=== PATIENT | male | born 1960 | race Caucasian/White ===

== ENCOUNTER 2023-10-22 11:09 | Outpatient (CLI) | payer BC, SELFPAY ==
--- NOTE | 2023-10-22 11:16 | ECG_ITS ---
SEE SCANNED COPY FOR CONFIRMED REPORT MTDD
== END 2023-10-22 11:10 | disposition home or self-care (01) ==
LOC: ANHLAB 11:10
PROVIDERS: PCP Family Medicine; Visit Provider Family Medicine
DX: R53.83 Other fatigue (principal)
CPT/HCPCS: 93005

== ENCOUNTER 2023-11-05 08:53 | Outpatient (CLI) | payer BC, SELFPAY ==
--- NOTE | 2023-11-07 12:56 | WPDHOMESLEEP ---
Sleep Study - Home Unattended Date of Study: 11/05/23 Ordering Provider: Chris Wong MD Interpreting Provider: Crystal Spangler MD Home Sleep Study Type: Watch PAT Height: 2.03 m Weight: 81.193 kg Body Mass Index: 19.6 Neck Circumference (inches): 15.5 [place]: 1 Reason for Sleep Study Loud snoring, witnessed apnea Sleep History Ponce Diana is a 63-year-old man with loud snoring and witnessed apnes per his . He has low energy levels in the evenings. He wakes up earlier than expected in the morning. He never awakens from sleep feeling short of breath. He occasionally has night with heartburn, belching or coughing. He always snores and is always really loud enough that others complain. He occasionally has difficulty sleeping with a cold. He does not wake up gasping for breath at night. He occasionally has breathing problems at night observed by his . He rarely sweats excessively at night. He never notices his heart pounding or beating irregularly at night, he denies falling asleep during the day, does not fall asleep involuntarily and never falls asleep while driving. He does not have loss of muscle tone with strong emotion. He does not have daytime difficulties due to excessive sleepiness. He does not feel paralyzed on waking or falling asleep. He does not have vivid dreamlike scenes upon awakening or falling asleep. He is not afraid to go to sleep. He does not have nightmares. On occasion he remembers his dreams. He does not have racing thoughts, feelings of sadness, depression or anxiety. He rarely notices parts jerking. He occasionally kicks at night. He does not have crawling or aching feelings in his legs or any kind of leg pain at night. He does not have morning jaw pain. He occasionally grinds his teeth at night. He rarely is bothered by pain during the day. He never is awakened by pain at night frequently wakes up feeling stiff in the morning. He occasionally wakes up with sore achy muscles and pain in the neck and spine. He has fatigue. He takes antacids regularly. He and his now sleep in separate rooms. Normal bedtime is 10:30 p.m. falling asleep within seconds, waking a couple of times during the night just for brief episode. While awake, he rolls to his other side and repositions. His normal wake time is between 6 and 7:00 a.m.. On weekends, bedtime is midnight, wake time is between 7 and 8:00 a.m.. He estimates getting between 6 and 7 hours of sleep at night. He does not take naps in the afternoon or evening. Habits: Tobacco: never smoker Caffeine: 2 cups of coffee, 1 serving of tea Alcohol: Rare Recreational substance: none [facility] Past Medical History Medical History Abnormal fasting glucose (03/25/22) glucose 102 on 03/25/2022. BMI 27.0-27.9,adult BMI 28.0-28.9,adult BPH without obstruction/lower urinary tract symptoms Chronic low back pain with right-sided sciatica Chronic thoracic back pain COVID-19 (12/21/21) vaccinated and tested positive 12/21/2021. Eczema lower extremity Encounter for wellness examination in adult Erectile dysfunction due to and not concurrent with radiation therapy Essential (primary) hypertension Fatigue Gastro-esophageal reflux disease without esophagitis Hypersomnia Mixed hyperlipidemia Total cholesterol 202, triglycerides 176, HDL 43, LDL 130 on 03/25/2022. Overweight (BMI 25.0-29.9) Polyp of colon (~2017) 2 benign polyps 2018, 1 polyp reported July,. Prostate cancer treated with radiation treatment April, Pruritus lower extremities from eczema Seasonal allergic rhinitis Family History Family History Father Family history of cardiovascular disease Mother Family history of malignant neoplasm of breast in first degree relative Social History Social History (Reviewed 11/07/23 @ 13:0
[2023-11-10 13:04] VITALS: BMI 19.6
== END 2023-11-06 07:30 | disposition home or self-care (01) ==
LOC: ANHCSM 08:55
PROVIDERS: PCP Family Medicine; Visit Provider Family Medicine
DX: G47.10 Hypersomnia, unspecified (principal); I49.9 Cardiac arrhythmia, unspecified
CPT/HCPCS: 95800

== ENCOUNTER 2023-12-31 10:29 | Outpatient (CLI) | payer BC, SELFPAY ==
--- NOTE | 2024-01-01 16:03 | WPDHOLTEREM ---
Holter/Event Monitor Holter/Event Monitor Date of procedure: 01/02/24 Holter/Event Procedure: 24 Hr Holter Monitor Indications: Cardiac arrhythmia Conclusion: 1. 24 hour holter monitor on 12/31/23. 2. Predominant rhythm is sinus rhythm. HR range 42-107 bpm; average HR 71 bpm. 3. There are 4,534 premature supraventricular complexes, 12 supraventricular couplets, 60 supraventricular bigeminy and 164 supraventricular trigeminy. There is 1 episode of atrial tachycardia at 146 bpm lasting 4 beats at 22:45. 4. There are 2 premature ventricular complexes. No ventricular tachycardia. 5. No sinoatrial or atrioventricular blocks. No significant pauses greater than 2 seconds. 6. Patient reports symptoms of palpitations which demonstrate sinus rhythm at 70 bpm.
== END 2023-12-31 10:30 | disposition home or self-care (01) ==
LOC: ANHCARD 10:30
PROVIDERS: PCP Family Medicine; Visit Provider Family Medicine
DX: I49.9 Cardiac arrhythmia, unspecified (principal)
CPT/HCPCS: 93225; 93226

== ENCOUNTER 2024-07-22 13:46 | Outpatient (CLI) | payer BC, SELFPAY ==
--- NOTE | ~2024-07-22 | CT_ITS ---
EXAMINATION: CT abdomen pelvis wo con DATE: 07/22/2024 14:06 INDICATION: Kidney stone. TECHNIQUE: Computed tomography (CT) of the abdomen and pelvis was performed without intravenous contr ast. Automated exposure control and iterative reconstruction technique were employed. The dose-length product was 216.09 mGy-cm. COMPARISON: None. FINDINGS: The visualized portions of the lung bases are clear without pneumonia or pleural effusion. The heart size is normal. No pericardial effusion. There is 11 mm cyst in the liver. The gallbladder is contracted. The pancreas and adrenal glands are normal. There is a 2 mm stone in right kidney. Lef t kidney is normal. There is a 5 mm stone in distal left ureter. There are brachytherapy seeds in the prostate. The appendix is normal. There are no dilated loops of bowel. There are no pathologically e nlarged lymph nodes. There is no free intraperitoneal fluid. There is a 19 mm nonaggressive lytic les ion in right ilium adjacent to the sacroiliac joint, likely benign. There is mild thoracic and lumbar spondylosis. IMPRESSION: 1. 5 mm stone in distal left ureter. No hydronephrosis. 2. 2 mm nonobstructing right kidney stone. Reviewed, dictated and finalized at location A. ECT MANAGEMENT PROFESSIONAL
--- OUTSIDE RECORDS SUMMARY | 2024-07-22 13:53 | XMS_ITS | Continuity of Care Document ---
Author Organization [facility] Address [address] [place] [address] [address] [place] [address] Phone Care Team Providers Care Class A Regional Drivers Name Role Phone Rey Carlson Unavailable Unavailable Procedures Procedure Date Eye Exam & Treatment Refraction Eye Exam & Treatment Advance Directives Directive Yes / No Effective Date File Name No Information Encounters Encounter Description Practice Location Reason(s) For Visit Diagnoses Date Provider Providers Copied on Encounter [facility], [address] [place] [address] [address], [place], [place], [id number], tel:[phone] SEC [facility] No Information 2-201 0 Robyn Le. [address] [facility] , [address], [place], [place], [facility], . tel:[phone] [facility], [address] [place] [address] [address], [place], [place], [id number], tel:[phone] SEC [facility] No Information 8-200 8 Krkianasamy Eamon. [address] [facility] [address], [place], [place], [facility], [place]. tel:[phone] Family History Family Member Type Diagnosis Age At Onset No Information Payers Payer name Insurance type Covered libertarian ID Authoriza tion(s) No Information Social History Type Description Quantity Date Captured Comments Sex Male Smoking Status No Information Chief Complaint And Reason For Visit No Information Reason For Referral Reason For Referral No Information History Of Present Illness Encounter Date Complaint History Of Prese nt Illness No Information Functional Status Date Functional Assessmen t No Information Instructions Date Instruction Additional Infor mation No Information Assessments Type Assessment Date No Information Patient Care Teams Name Effective Dates (start - stop) Status Members No Information
--- OUTSIDE RECORDS SUMMARY | 2024-07-22 13:53 | XMS_ITS | Referral Summary ---
Author Organization [facility] HealthCare Care Team Providers Care Mc Kay Stitcher Name Role Phone Chris Wong MD Primary Care Provider [phone] Social History Tobacco Use Types Packs/Day Years Used Date Smoking Tobacco: Never Assessed Personal Safety Answer Date Recorded Getting School Help Needed Not on file 08/16 Sex and Gender Information Value Date Recorded Sex Assigned at Not on file Legal Sex Male 10:00 AM CDT Gender Identity Not on file Sexual Orientation Not on file Plan of Treatment Not on file Insurance [employer] [place] [employer] [place] Care Teams Mc Kay Stitcher Relationship Specialty Start Date End Date Chris Wong MD [email or web address] [address] PCP - General Family Medicine 02/09/21
--- OUTSIDE RECORDS SUMMARY | 2024-07-22 13:53 | XMS_ITS | Clinical Summary ---
Author Organization [facility] HealthCare Care Team Providers Care Site Inspector Name Role Phone Chris Wong MD Primary Care Provider [phone] Social History Tobacco Use Types Packs/Day Years Used Date Smoking Tobacco: Never Assessed Personal Safety Answer Date Recorded Getting School Help Needed Not on file 08/16 Sex and Gender Information Value Date Recorded Sex Assigned at Not on file Legal Sex Male 10:00 AM CDT Gender Identity Not on file Sexual Orientation Not on file Plan of Treatment Not on file Insurance [employer] [place] [employer] [place] Care Teams Site Inspector Relationship Specialty Start Date End Date Chris Wong MD [email or web address] [address] PCP - General Family Medicine 02/09/21
--- OUTSIDE RECORDS SUMMARY | 2024-07-22 13:53 | XMS_ITS | Patient Health Record ---
Author Organization [employer] Address [address] [facility] [address] [place] [address] Care Team Providers Care Commercial Underwriter Name Role Phone Chris Wong MD Primary Care Provider Garfield Walton Unavailable [phone] Reason For Referral No Information Problems Problem Type SNOMED Code ICD Code Onset Dates Problem Status W/U Status Risk Notes Problem [id number] Personal history of colonic polyps (Z86.010) Active confirmed Plan Of Treatment No Information Insurance Providers Payer Name Payer Address Payer Phone Subscriber Number Group Number Insured Name Patient Relationship to Insured Coverage Start Date Coverage End Date Blue Access PPO E2 [address] [place] [address] [id number] Ponce Diana Self - patient is the insured
--- OUTSIDE RECORDS SUMMARY | 2024-07-22 13:53 | XMS_ITS | Encounter Summary ---
Author Organization [facility] Healthcare Address [address] [place] [address] Care Team Providers Care Director Private Music Therapy Agency Name Role Phone Chris Wong MD Primary Care Provider [phone] Encounter Details Date Type Department Care Team (Late st Contact Info) Description 02/08/2021 Telephone [facility] - Imaging [address] [place] [address] Transcribed Order, Provider Social History Tobacco Use Types Packs/Day Years Used Date Smoking Tobacco: Never Assessed Sex and Gender Information Value Date Recorded Sex Assigned at Not on file Legal Sex Male 10:00 AM CDT Gender Identity Not on file Sexual Orientation Not on file documented as of this encounter Plan of Treatment Not on file documented as of this encounter Visit Diagnoses Not on filedocumented in this encounter Care Teams Director Private Music Therapy Agency Relationship Specialty Start Date End Date Chris Wong MD [address] [address] PCP - General Family Medicine 02/09/21 documented as of this encounter
--- OUTSIDE RECORDS SUMMARY | 2024-07-22 13:53 | XMS_ITS | Clinical Summary ---
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 Gender Identity Not on file Sexual Orientation Not on file Plan of Treatment Health Maintenance Due Date Last Done Comments Colorectal Cancer Screening Colonoscopy (10 Years) 1962 Annual Physical 1965 Hepatitis C 1980 Zoster Vaccines (1 of 2) 2012 COVID-19 Vaccine (2 - 2023-2 5 season) 2024 09/09/2020 Influenza Adult (#1) 2024 DTaP, Tdap and Td Vaccines ( 2 - Td or Tdap) 06/15/2026 06/15/2016 RSV Immunization or 60+ Years (1 - 1-dose 75+ series) 2037 Meningococcal B Vaccine Aged Out No l onger eligible based on patient's age to complete this topic Meningococcal Vaccine Aged Out No marc bunny eligible based on patient's age to complete this topic Pneumococcal Vaccine: Pediat rics (0 to 5 Years) and At-Risk Patients (6 to 64 Years) Aged Out No longer eligi ble based on patient's age to complete this topic RSV Immunizations Under 20 Months Aged Out No longer eligible based on patient's age to complete this topic Insurance [facility] Care Teams Pediatric Medical Assistant Relationship Specialty Start Date End Date Chris Wong MD [address] [place] [address] [address] [place] [address] PCP - General FAMILY PRACTICE 06/20/21
== END 2024-07-22 13:47 | disposition home or self-care (01) ==
LOC: ANHIMG 13:50
PROVIDERS: PCP Family Medicine; Visit Provider Urology
DX: N20.2 Calculus of kidney with calculus of ureter (principal)
CPT/HCPCS: 74176

== ENCOUNTER 2024-07-29 02:39 | Day surgery (SDC) | payer BC, SELFPAY ==
[2024-07-28 11:50] VITALS: BMI 26.2
--- NOTE | 2024-07-28 11:51 | PC.NURSE ---
Report to the Outpatient Waiting Room, entrance under the green pavilion located off [facility], at time _1000_ on date _[id number]_. Planned Procedure Time: _1200_.? Time changes happen often and if your time is changed the preop area will call you the afternoon before. - You and your visitor will be asked to self-screen and do not enter if you have any COVID symptoms. Please call surgeon if you need to reschedule. - A mask is optional within the hospital at this time. Patients may have clear liquids (water, carbonated beverages, clear teas, apple juice) until 3 hours prior to surgery with a maximum of 20 ounces. - No food from midnight until time of surgery and no smoking, or chewing tobacco (or any form of nicotine). No chewing gum, candy or mints. Take only the following medications with a SIP of water on the morning of surgery: ___Flonase____ DO NOT STOP ANY OF YOUR OTHER PRESCRIPTION MEDICATIONS PRIOR TO SURGERY EXCEPT THE FOLLOWING Hold all vitamins and supplements for 3 days per anesthesiologist. Medications to discontinue per physician Date to take last dose Please no make-up, nail swazi, hairspray, perfume, deodorant, or body powder the day of surgery.? No jewelry (including any body piercings) or valuables the day of surgery, leave them at home.? Please take a shower or bath the night before, or the morning of, surgery with an antibacterial soap.? Wear comfortable, loose fitting clothing.? - Jewelry must be removed prior to entering the operating room.? Rings and piercings that are not removed may be cut off. - The hospital will not accept responsibility for valuables.? - Please leave all valuables, including medications, at home the day of surgery. If you are going home after surgery, a licensed tilt tray driver must drive you home.? - NO public transportation without another adult if you receive anesthesia. - We recommend that an adult stay with you for 24 hours following discharge. - We also recommend that you do not drive, make important decision, drink alcoholic beverages, or take any drugs that were not prescribed by your health care provider for at least 24 hours after your discharge time. Follow any additional instructions given to you from your surgeon. Telephone instructions given to __Rich__and asked if any additional questions and then verbalized understanding. Patient advised to call surgeon office or pre surgery nurse liaison [phone] if any additional questions.
[2024-07-29] VITALS (9 sets, daily range): BP systolic 104–154; BP diastolic 70–98; PULSE 52–107; RESP 10–18; TEMP 36.4–36.7; O2SAT 98–100
--- OUTSIDE RECORDS SUMMARY | 2024-07-29 02:41 | XMS_ITS | Referral Summary ---
Author Organization [facility] HealthCare Care Team Providers Care Project Executive Name Role Phone Chris Wong MD Primary Care Provider [phone] Social History Tobacco Use Types Packs/Day Years Used Date Smoking Tobacco: Never Assessed Personal Safety Answer Date Recorded Getting School Help Needed Not on file 08/16 Sex and Gender Information Value Date Recorded Sex Assigned at Not on file Legal Sex Male 10:00 AM CDT Gender Identity Not on file Sexual Orientation Not on file Plan of Treatment Not on file Insurance [employer] [place] [employer] [place] Care Teams Project Executive Relationship Specialty Start Date End Date Chris Wong MD [address] [address] PCP - General Family Medicine 02/09/21
--- OUTSIDE RECORDS SUMMARY | 2024-07-29 02:41 | XMS_ITS | Patient Health Record ---
Author Organization [employer] Address [address] [facility] [address] [place] [address] Care Team Providers Care On Air Director Name Role Phone Chris Wong MD Primary Care Provider Garfield Walton Unavailable [phone] Reason For Referral No Information Problems Problem Type SNOMED Code ICD Code Onset Dates Problem Status W/U Status Risk Notes Problem [id number] Personal history of colonic polyps (Z86.010) Active confirmed Plan Of Treatment No Information Insurance Providers Payer Name Payer Address Payer Phone Subscriber Number Group Number Insured Name Patient Relationship to Insured Coverage Start Date Coverage End Date [employer] Access PPO E2 [address] [place] [address] [id number] Ponce Diana Self - patient is the insured
--- OUTSIDE RECORDS SUMMARY | 2024-07-29 02:41 | XMS_ITS | Clinical Summary ---
Author Organization [facility] Address [address] [place] [address] Care Team Providers Care Professional Volleyball Player Name Role Phone Chris Wong MD Primary Care Provider [phone] Social History Tobacco Use Types Packs/Day Years Used Date Smoking Tobacco: Never Assessed Sex and Gender Information Value Date Recorded Sex Assigned at Not on file Legal Sex Male 3:52 PM TECHNICAL DOCUMENT WRITER Gender Identity Not on file Sexual Orientation [...] patient's age to complete this topic Insurance [facility] Care Teams Professional Volleyball Player Relationship Specialty Start Date End Date Chris Wong MD [address] [place] [address] [address] [place] [address] PCP - General FAMILY PRACTICE 06/20/21
--- OUTSIDE RECORDS SUMMARY | 2024-07-29 02:41 | XMS_ITS | Continuity of Care Document ---
Author Organization [facility] Address [address] [place] [address] [address] [place] [address] Phone Care Team Providers Care Prep Room Supervisor Name Role Phone Rey Carlson Unavailable Unavailable Procedures Procedure Date Eye Exam & Treatment Refraction Eye Exam & Treatment Advance Directives Directive Yes / No Effective Date File Name No Information Encounters Encounter Description Practice Location Reason(s) For Visit Diagnoses Date Provider Providers Copied on Encounter [facility], [address] [place] [address] [address], [place], [place], [id number], tel:[phone] SEC [facility] No Information 2-201 0 Robyn Le. [address] [facility] , [address], [place], [place], [facility], . tel:[phone] [facility], [address] [place] [address] [address], [place], [place], [id number], tel:[phone] SEC [facility] No Information 8-200 8 Krkianasamy E[address]. [address] [facility] [address], [place], [place], [facility], [place]. tel:[phone] Family History Family Member Type Diagnosis Age At Onset No Information Payers Payer name Insurance type Covered green party ID Authoriza tion(s) No Information Social History [...]
--- OUTSIDE RECORDS SUMMARY | 2024-07-29 02:41 | XMS_ITS | Encounter Summary ---
Author Organization [facility] Healthcare Address [address] [place] [address] Care Team Providers Care Science Manager Name Role Phone Chris Wong MD Primary Care Provider [phone] Encounter Details Date Type Department Care Team (Late st Contact Info) Description 02/08/2021 Telephone [facility] - Imaging [address] [place] [address] Transcribed Order, Provider Social History [...] on filedocumented in this encounter Care Teams Science Manager Relationship Specialty Start Date End Date Chris Wong MD [address] [address] PCP - General Family Medicine 02/09/21 documented as of this encounter
--- OUTSIDE RECORDS SUMMARY | 2024-07-29 02:41 | XMS_ITS | Clinical Summary ---
Author Organization [facility] HealthCare Care Team Providers Care Colored Liquid Plastic Applier Name Role Phone Chris Wong MD Primary Care Provider [phone] Social History Tobacco Use Types Packs/Day Years Used Date Smoking Tobacco: Never Assessed Personal Safety Answer Date Recorded Getting School Help Needed Not on file 08/16 Sex and Gender Information Value Date Recorded Sex Assigned at Not on file Legal Sex Male 10:00 AM CDT Gender Identity Not on file Sexual Orientation Not on file Plan of Treatment Not on file Insurance [employer] [place] [employer] [place] Care Teams Colored Liquid Plastic Applier Relationship Specialty Start Date End Date Chris Wong MD [address] [address] PCP - General Family Medicine 02/09/21
--- NOTE | 2024-07-29 06:22 | WPDHPUPDATE1 ---
History and Physical Update Update Date/Time: 07/29/24 06:22 History and Physical has been reviewed, including an updated exam of the patient. There are NO changes in the patient's condition. Risks, benefits, and alternatives have been discussed and questions answered. Patient agrees to proceed with procedure.
[2024-07-29] MEDS: LACTATED RINGERS 1,000 ML 30 ML IV CONT (12:55)
--- NOTE | 2024-07-29 13:49 | WPDANESEPPF ---
Anes - Initial Pre Proc Eval Procedure: Operation Date: 07/29/24 14:00 Proposed Procedures p Cystoscopy Left Ureteroscopy, Left Stone Extraction, Possible Holmium Laser Lithotripsy, Left Retrograde Pyelogram, Left Stent Placement - Tirso Sylvester MD Date/Time: 07/29/24 13:49 Surgeon: Tirso Sylvester MD Pre Op Diagnosis: Left Ureteral Stone Patient Data Age: 63 Gender: M Height: 1.73 m Weight: 78.6 kg Last Vital Signs Temp 98.0 F 07/29/24 12:13 Pulse 107 H 07/29/24 12:13 Resp 16 07/29/24 12:13 BP 128/85 07/29/24 12:13 Pulse Ox 98 07/29/24 12:13 O2 Del Method Room Air 07/29/24 12:13 Allergies Allergy/AdvReac Type Severity Reaction Status Date / Time Penicillins Allergy Unknown Unknown Verified 07/29/24 13:09 Home Medications ?Medication ?Instructions ?Recorded ?Confirmed ?Type fluticasone propionate 50 1 spray intranasal BID 10/10/20 07/29/24 History mcg/actuation nasal spray,suspension cetirizine 10 mg tablet (Zyrtec) 10 mg PO . q.h.s. PRN allergy 10/22/23 07/28/24 History symptoms loratadine 10 mg tablet 10 mg PO . q.a.m. 10/22/23 07/29/24 History tadalafil 5 mg tablet (Cialis) 5 mg PO .COMPLEX sexual activity 10/22/23 07/28/24 Rx #30 tabs lisinopril 10 mg tablet 10 mg PO DAILY #90 tabs 06/10/24 07/29/24 Rx Patient hx anesthesia problems: none Family hx anesthesia problems: none Results Review: All pre-operative results and documents have been reviewed as part of the pre-operative evaluation. [facility] Past Medical History Medical History Eczema lower extremity BMI 28.0-28.9,adult Hypersomnia him sleep study 11/05/2023 with AHI of 2.0 with elevated RDI with arrhythmia throughout the night. Needs split night sleep study. Fatigue Erectile dysfunction due to and not concurrent with radiation therapy Overweight (BMI 25.0-29.9) Abnormal fasting glucose (03/25/22) glucose 102 on 03/25/2022. Fasting glucose 92 with hemoglobin A1c 5.5 on 10/22/2023. Pruritus lower extremities from eczema Prostate cancer treated with radiation treatment April, COVID-19 (12/21/21) vaccinated and tested positive 12/21/2021. Seasonal allergic rhinitis Chronic thoracic back pain Chronic low back pain with right-sided sciatica Polyp of colon (~2017) 2 benign polyps 2017, 1 polyp reported July,. Gastro-esophageal reflux disease without esophagitis Mixed hyperlipidemia Total cholesterol 202, triglycerides 176, HDL 43, LDL 130 on 03/25/2022. Cholesterol 202, triglycerides 167, HDL 43, LDL 131 with ratio of 4.7 on 10/22/2023. Essential (primary) hypertension BMI 27.0-27.9,adult BPH without obstruction/lower urinary tract symptoms Encounter for wellness examination in adult Family History Family History Father Family history of cardiovascular disease Mother Family history of malignant neoplasm of breast in first degree relative Social History Social History Smoking status: Never smoker Alcohol intake: current Substance use: never Substance use type: does not use Lack of Transportation: No Lack of Food: Never True Current Housing: I Have Housing Concerned About Future Housing: No Difficulty Paying Gas/Electric Bills: No Difficulty Paying for Meds: No Currently Unemployed: No Education: Master's Degree or Higher Difficulty w/ Childcare or Family Care: No Living arrangements: with family Spiritual care concerns: No Anes - Eval Final PreProcedure Day of Procedure 07/29/24 13:49 Patient weight: normal Lungs: normal air movement Airway: Mallampati scale class II Neurological: alert and oriented Last oral intake: >/= 8 hours ASA classification: II Emergent: no Anesthetic plan: proceed Anesthesia type and monitoring: general LMA and standard monitoring Results Review: All pre-operative results and documents have been reviewed as part of the pre-operative evaluation. HTN. Informed Consent: The patient's anesthetic plan and its attendant risks and benefits were discussed with the patient/family/POA. Questions were solicited and answers provided to the satisfaction of the patient/family/POA.
[2024-07-29] MEDS: ceFAZolin 2 GM/D5W 50 ML 2 GM/50 ML BAG IVPB (14:11)
[2024-07-29] MEDS: LIDOCAINE 2% GEL UROJET 10 ML PKG MUCOUS MEM (14:15)
[2024-07-29] MEDS: KETOROLAC 30 MG/ML VIAL (*BKC) IV PUSH (14:37)
--- NOTE | 2024-07-29 14:52 | W.PM.PROC2 ---
Procedure Note - Detailed Date of Procedure 07/29/24 Pre-op Diagnosis Left Ureteral Stone Post-op Diagnosis Same Procedure Performed Cystoscopy, left ureteroscopy, laser lithotripsy with ureteral stone extraction and retrograde pyelogram Surgeon Tirso Sylvester MD Anesthesia General Description of Procedure Patient is brought to the operative suite where he was prepped draped in routine sterile fashion while in dorsal lithotomy position after the uneventful induction of a general LMA anesthetic. Cystoscopy was undertaken with a 19 F rigid cystoscope. There was no urethral stricture and bladder mucosa is normal. There was no intravesical foreign body or neoplasm. A 0.035 in glidewire was advanced into his left renal pelvis under fluoroscopy in the distal ureter was dilated with an 8F/10F dilator. Ureteroscopy was undertaken with a short tapered semi-rigid ureteral scope. I tried extracting the left distal ureteral stone intact but was unable to. I fractured the laser using a 200 micron Toño laser fiber in the 4 smaller pieces, all of which were removed with ease with a 1.9 F disposable stone basket. Because of this ease of this manipulation and minimal apparent ureteral edema I opted not to place a ureteral stent. Retrograde pyelography showed no evidence of extravasation or significant obstruction. Scopes and wires removed and he was taken recovery room good condition. Drains No Packing No Pathology Yes Complications No immediate complications Condition Stable Disposition PACU
== END 2024-07-29 16:06 | disposition home or self-care (01) ==
PROVIDERS: PCP Family Medicine; Visit Provider Urology
PROC: (CPT 52352; principal; 2024-07-29 14:00)
DX: N20.1 Calculus of ureter (principal)
CPT/HCPCS: 52353; 74420; 82365; 88300; C1769; J0690; J1100; J1885; J2003; J2250; J2405; J2704; J3010; J7120; Q9966

== ENCOUNTER 2025-01-19 11:28 | Outpatient (CLI) | payer BC, SELFPAY ==
--- NOTE | ~2025-01-19 | XR_ITS ---
XR abdomen/kub 1V 01/19/2025 11:48 INDICATION: Kidney stones TECHNIQUE: KUB COMPARISON: None FINDINGS: Bowel gas pattern is normal. There is no evidence of free air, mass, organomegaly, ascites or obstruction. No abnormal calculi are seen. The bones appear intact. IMPRESSION: 1: No acute abdominal abnormality identified. Reviewed, dictated and finalized at location A.
--- OUTSIDE RECORDS SUMMARY | 2025-01-19 12:04 | XMS_ITS | Patient Health Record ---
Author Organization [employer] Address [address] [facility] [address] [place] [address] Care Team Providers Care Electrician Locomotive Name Role Phone Judith HALE, Chris Primary Care Provider Garfield Walton Unavailable [phone] Reason For Referral No Information Problems Problem Type SNOMED Code ICD Code Onset Dates Problem Status W/U Status Risk Notes Problem [id number] Personal history of colonic polyps (Z86.010) Active confirmed Plan Of Treatment No Information Insurance Providers Payer Name Payer Address Payer Phone Subscriber Number Group Number Insured Name Patient Relationship to Insured Coverage Start Date Coverage End Date [employer] Access PPO E2 [address] [place] [address] [id number] [place] Self - patient is the insured
--- OUTSIDE RECORDS SUMMARY | 2025-01-19 12:04 | XMS_ITS | Clinical Summary ---
Author Organization [facility] Address [address] [place] [address] Care Team Providers Care Shallot Packer Name Role Phone Chris Wong MD Primary Care Provider [phone] Social History Tobacco Use Types Packs/Day Years Used Date Smoking Tobacco: Never Assessed Sex and Gender Information Value Date Recorded Sex Assigned at Not on file Legal Sex Male 3:52 PM FAMILY DAY CARE PROVIDER Gender Identity Not on file Sexual Orientation Not on file Plan of Treatment Health Maintenance Due Date Last Done Comments Colorectal Cancer Screening Colonoscopy (10 Years) 1962 Annual Physical 1965 Hepatitis C 1980 Pneumococcal Vaccine: 50+ Ye ars (1 of 1 - PCV) 2012 Zoster Vaccines (1 of 2) 2012 COVID-19 Vaccine (2 - 2023-2 5 season) 2024 09/09/2020 DTaP, Tdap and Td Vaccines ( 2 [...] patient's age to complete this topic Insurance [facility] Care Teams Shallot Packer Relationship Specialty Start Date End Date Chris Wong MD [address] [place] [address] [address] [place] [address] PCP - General FAMILY PRACTICE 06/20/21
--- OUTSIDE RECORDS SUMMARY | 2025-01-19 12:04 | XMS_ITS | Encounter Summary ---
Author Organization [facility] Healthcare Address [address] [place] [address] Care Team Providers Care Gang Pusher Name Role Phone Chris Wong MD Primary Care Provider [phone] Encounter Details Date Type Department Care Team (Late st Contact Info) Description 02/08/2021 Telephone [facility] - Imaging [address] [place] [address] Transcribed Order, Provider Social History [...] on filedocumented in this encounter Care Teams Gang Pusher Relationship Specialty Start Date End Date Chris Wong MD [address] [address] PCP - General Family Medicine 02/09/21 documented as of this encounter
--- OUTSIDE RECORDS SUMMARY | 2025-01-19 12:04 | XMS_ITS | Clinical Summary ---
Author Organization [facility] Care Team Providers Care Tire Fabric Impregnating Range Tender Name Role Phone Chris Wong MD Primary Care Provider [phone] Social History Tobacco Use Types Packs/Day Years Used Date Smoking Tobacco: Never Assessed Personal Safety Answer Date Recorded Getting School Help Needed Not on file 08/16 Sex and Gender Information Value Date Recorded Sex Assigned at Not on file Legal Sex Male 10:00 AM CDT Gender Identity Not on file Sexual Orientation Not on file Plan of Treatment Not on file Insurance [employer] [place] [place] Care Teams Tire Fabric Impregnating Range Tender Relationship Specialty Start Date End Date Chris Wong MD [address] [address] PCP - General Family Medicine 02/09/21
== END 2025-01-19 11:29 | disposition home or self-care (01) ==
PROVIDERS: PCP Family Medicine; Visit Provider Nurse Practitioner Family
DX: N20.0 Calculus of kidney (principal)
CPT/HCPCS: 74018